=== PATIENT | male | born 1985 | race Two or more races ===

== ENCOUNTER 2024-09-02 09:32 | Inpatient (IN) | payer OTHER ==
[~2024-09-02] VITALS: Ht 182.9 cm; Wt 120.0 kg
[2024-09-02] MEDS ORDERED: METF-81 PO (10:43)
[2024-09-02] MEDS ORDERED: ATOR20TA PO (10:43)
[2024-09-02] MEDS ORDERED: SODIUM CHLORIDE 0.9% 0 ML ONE (11:05)
[2024-09-02] MEDS ORDERED: IOHEXOL 350 MG/ML 100 ML VIAL ONE (11:05)
[2024-09-02] MEDS ORDERED: 0.9% SODIUM CHLORIDE 10 ML SYRINGE IVP ONE (11:06)
[2024-09-02 11:13] LABS: BASOPHILS % (AUTO) 0.5 % (0.0-2.0); EOSINOPHILS % (AUTO) 3.2 % (1.0-6.0); HEMATOCRIT 41.9 % (41-53); HEMOGLOBIN 13.8 g/dL (13.5-17.5); LYMPHOCYTES # (AUTO) 3.3 K/uL (1.0-4.8); LYMPHOCYTES % (AUTO) 40.1 % (22.0-44.0); MEAN CORPUSCULAR HEMOGLOBIN 30.1 pg (26.0-34.0); MEAN CORPUSCULAR VOLUME 91 fL (80-100); MONOCYTES # (AUTO) 0.8 K/uL (0.1-1.0); MONOCYTES % (AUTO) 10.4 % (2.0-9.0); NEUTROPHILS # (AUTO) 3.7 K/uL (1.8-7.7); NEUTROPHILS % (AUTO) 45.8 % (40.0-70.0); PLATELET COUNT (AUTO) 240 K/uL (150-450); RED BLOOD CELL COUNT(AUTO) 4.59 MIL/uL (4.50-5.90); RED CELL DISTRIBUTION WIDTH 13.1 % (11.5-14.5); WHITE BLOOD COUNT (AUTO) 8.2 K/uL (4.5-11.0)
[2024-09-02 11:44] LABS: ANION GAP 13 mmol/L (8-16); CALCIUM, TOTAL 9.2 mg/dL (8.8-10.5); CARBON DIOXIDE 26 mmol/L (22-29); CHLORIDE 105 mmol/L (98-107); CREATININE 0.95 mg/dL (0.60-1.30); GLOMERULAR FILTR. RATE CALC > 60 mL/min (>60); GLUCOSE,RANDOM 80 mg/dL (70-110); POTASSIUM 3.7 mmol/L (3.5-5.1); SODIUM SERUM 144 mmol/L (136-145); UREA NITROGEN, BLOOD 12 mg/dL (7-18)
[2024-09-02 11:52] LABS: ALANINE AMINOTRANSFERASE 84 U/L (12-78); ALBUMIN 4.1 g/dL (3.4-5.0); ALKALINE PHOSPHATASE 84 U/L (46-116); ASPARTATE AMINOTRANSFERASE 50 U/L (15-37); BILIRUBIN,TOTAL 0.9 mg/dL (0.1-1.0); LIPASE 21 U/L (16-77); TOTAL PROTEIN, SERUM 7.4 g/dL (6.4-8.2)
[2024-09-02 15:21] LABS: APPEARANCE,URINE CLEAR (CLEAR); BILIRUBIN,URINE NEGATIVE (NEGATIVE); COLOR,URINE YELLOW (YELLOW); GLUCOSE, URINE (UA) NEGATIVE (NEGATIVE); KETONES,URINE 40-60 mg/dL (NEGATIVE); LEUKOCYTE ESTERASE ,URINE NEGATIVE (NEGATIVE); NITRATE,URINE NEGATIVE (NEGATIVE); OCCULT BLOOD,URINE NEGATIVE (NEGATIVE); PH,URINE 5.5 (5.0-8.0); PROTEIN,URINE TRACE mg/dL (NEGATIVE); SPECIFIC GRAVITIY, URINE 1.026 (1.003-1.030); UROBILINOGEN,URINE <=1.0 mg/dL (<=1.0)
[2024-09-02] MEDS ORDERED: MORPHINE SULFATE 2 MG/ML SYRINGE IVP PRN (16:15)
[2024-09-02] MEDS ORDERED: HYDROCODONE/ACETAMINOPHEN 5-325 MG TABLET PO PRN (16:15)
[2024-09-02] MEDS ORDERED: BISACODYL 10 MG RECTAL RECTAL SUPPOSITORY PR PRN (16:15)
[2024-09-02] MEDS ORDERED: ONDANSETRON HCL 4 MG/2 ML VIAL IVP PRN (16:15)
[2024-09-02] MEDS ORDERED: ZOLPIDEM TARTRATE 5 MG TABLET PO PRN (16:15)
[2024-09-02] MEDS ORDERED: ACETAMINOPHEN 325 MG TABLET PO PRN (16:15)
[2024-09-02] MEDS ORDERED: MAGNESIUM HYDROXIDE SUSPENSION 30 ML UDCUP PO PRN (16:15)
[2024-09-02 20:56] VITALS: BP 134/83; PULSE 64; RESP 18; TEMP 97.7; O2SAT 95
[2024-09-02] MEDS: DOCUSATE SODIUM 100 MG CAPSULE PO SCH (21:00)
[2024-09-02] MEDS: HEPARIN SODIUM,PORCINE 5,000 UNITS/ML VIAL SQ SCH (23:14)
[2024-09-03 00:09] VITALS: BP 111/66; PULSE 64; RESP 18; TEMP 98; O2SAT 96
[2024-09-03 03:50] VITALS: BP 93/60; PULSE 55; RESP 18; TEMP 97.9; O2SAT 97
[2024-09-03 06:47] LABS: BASOPHILS % (AUTO) 0.7 % (0.0-2.0); EOSINOPHILS % (AUTO) 3.9 % (1.0-6.0); HEMATOCRIT 41.3 % (41-53); HEMOGLOBIN 14.2 g/dL (13.5-17.5); LYMPHOCYTES # (AUTO) 2.7 K/uL (1.0-4.8); LYMPHOCYTES % (AUTO) 41.1 % (22.0-44.0); MEAN CORPUSCULAR HEMOGLOBIN 30.7 pg (26.0-34.0); MEAN CORPUSCULAR HGB CONC 34.2 G/dL (31.0-37.0); MEAN CORPUSCULAR VOLUME 90 fL (80-100); MONOCYTES # (AUTO) 0.6 K/uL (0.1-1.0); MONOCYTES % (AUTO) 9.6 % (2.0-9.0); NEUTROPHILS # (AUTO) 2.9 K/uL (1.8-7.7); NEUTROPHILS % (AUTO) 44.7 % (40.0-70.0); PLATELET COUNT (AUTO) 238 K/uL (150-450); RED BLOOD CELL COUNT(AUTO) 4.62 MIL/uL (4.50-5.90); RED CELL DISTRIBUTION WIDTH 13.2 % (11.5-14.5); WHITE BLOOD COUNT (AUTO) 6.5 K/uL (4.5-11.0)
[2024-09-03 06:55] LABS: ANION GAP 10 mmol/L (8-16); CARBON DIOXIDE 25 mmol/L (22-29); CHLORIDE 106 mmol/L (98-107); CREATININE 0.89 mg/dL (0.60-1.30); GLOMERULAR FILTR. RATE CALC > 60 mL/min (>60); GLUCOSE,RANDOM 76 mg/dL (70-110); POTASSIUM 3.3 mmol/L (3.5-5.1); SODIUM SERUM 141 mmol/L (136-145); UREA NITROGEN, BLOOD 10 mg/dL (7-18)
[2024-09-03 07:56] VITALS: BP 102/62; PULSE 58; RESP 19; TEMP 98.1; O2SAT 99
[2024-09-03] MEDS: ATORVASTATIN CALCIUM 20 MG TABLET PO SCH (08:40)
[2024-09-03] MEDS: MetFORMIN HCL 500 MG ER TABLET PO SCH (08:40)
[2024-09-03] MEDS: PANTOPRAZOLE SODIUM 40 MG DR TABLET PO SCH (08:40)
[2024-09-03] MEDS: SODIUM CHLORIDE 0.9% 1,000 ML IV ONE (13:04)
[2024-09-03 14:57] VITALS: BP 113/72; PULSE 68; RESP 19; TEMP 98.1; O2SAT 98
[2024-09-03 15:06] LABS: CREATINE KINASE, TOTAL ONLY 126 U/L (39-308)
[2024-09-03 20:00] VITALS: BP 111/69; PULSE 65; RESP 18; TEMP 98.1; O2SAT 95
[2024-09-04] VITALS: BP 103/61; PULSE 63; RESP 17; TEMP 97.9; O2SAT 99
[2024-09-04 04:00] VITALS: BP 108/70; PULSE 60; RESP 18; TEMP 98.1; O2SAT 97
[2024-09-04 04:06] LABS: HEPATITIS C AB (EIA) Non Reactive (Non Reactive)
[2024-09-04 06:55] LABS: BASOPHILS % (AUTO) 0.6 % (0.0-2.0); HEMATOCRIT 42.5 % (41-53); HEMOGLOBIN 14.4 g/dL (13.5-17.5); LYMPHOCYTES # (AUTO) 3.6 K/uL (1.0-4.8); LYMPHOCYTES % (AUTO) 51.4 % (22.0-44.0); MEAN CORPUSCULAR HEMOGLOBIN 30.7 pg (26.0-34.0); MEAN CORPUSCULAR HGB CONC 33.9 G/dL (31.0-37.0); MEAN CORPUSCULAR VOLUME 91 fL (80-100); MONOCYTES # (AUTO) 0.6 K/uL (0.1-1.0); MONOCYTES % (AUTO) 9.2 % (2.0-9.0); NEUTROPHILS # (AUTO) 2.4 K/uL (1.8-7.7); NEUTROPHILS % (AUTO) 34.8 % (40.0-70.0); PLATELET COUNT (AUTO) 229 K/uL (150-450); RED BLOOD CELL COUNT(AUTO) 4.69 MIL/uL (4.50-5.90); RED CELL DISTRIBUTION WIDTH 13.3 % (11.5-14.5); WHITE BLOOD COUNT (AUTO) 6.9 K/uL (4.5-11.0)
[2024-09-04 07:16] LABS: ANION GAP 7 mmol/L (8-16); CALCIUM, TOTAL 9.4 mg/dL (8.8-10.5); CARBON DIOXIDE 25 mmol/L (22-29); CHLORIDE 107 mmol/L (98-107); CREATININE 0.93 mg/dL (0.60-1.30); GLOMERULAR FILTR. RATE CALC > 60 mL/min (>60); GLUCOSE,RANDOM 80 mg/dL (70-110); POTASSIUM 3.8 mmol/L (3.5-5.1); SODIUM SERUM 139 mmol/L (136-145); UREA NITROGEN, BLOOD 11 mg/dL (7-18)
[2024-09-04 08:04] VITALS: BP 116/76; PULSE 58; RESP 19; TEMP 97.8; O2SAT 97
[2024-09-04 15:35] VITALS: BP 111/67; PULSE 61; RESP 19; TEMP 98.1; O2SAT 99
[2024-09-04 20:24] VITALS: BP 112/72; PULSE 69; RESP 18; TEMP 98; O2SAT 95
[2024-09-05 00:07] VITALS: BP 98/63; PULSE 67; RESP 18; TEMP 97.5; O2SAT 95
[2024-09-05 06:15] VITALS: BP 103/62; PULSE 60; RESP 16; TEMP 97.9; O2SAT 95
[2024-09-05 07:15] LABS: BASOPHILS % (AUTO) 0.8 % (0.0-2.0); EOSINOPHILS % (AUTO) 3.7 % (1.0-6.0); HEMATOCRIT 41.8 % (41-53); HEMOGLOBIN 14.1 g/dL (13.5-17.5); LYMPHOCYTES # (AUTO) 2.9 K/uL (1.0-4.8); MEAN CORPUSCULAR HEMOGLOBIN 30.4 pg (26.0-34.0); MEAN CORPUSCULAR HGB CONC 33.8 G/dL (31.0-37.0); MEAN CORPUSCULAR VOLUME 90 fL (80-100); MONOCYTES # (AUTO) 0.5 K/uL (0.1-1.0); MONOCYTES % (AUTO) 8.1 % (2.0-9.0); NEUTROPHILS # (AUTO) 2.8 K/uL (1.8-7.7); NEUTROPHILS % (AUTO) 43.4 % (40.0-70.0); PLATELET COUNT (AUTO) 226 K/uL (150-450); RED BLOOD CELL COUNT(AUTO) 4.65 MIL/uL (4.50-5.90); RED CELL DISTRIBUTION WIDTH 13.4 % (11.5-14.5); WHITE BLOOD COUNT (AUTO) 6.5 K/uL (4.5-11.0)
[2024-09-05 07:27] LABS: ANION GAP 9 mmol/L (8-16); CALCIUM, TOTAL 8.8 mg/dL (8.8-10.5); CARBON DIOXIDE 26 mmol/L (22-29); CHLORIDE 106 mmol/L (98-107); CREATININE 0.82 mg/dL (0.60-1.30); GLOMERULAR FILTR. RATE CALC > 60 mL/min (>60); GLUCOSE,RANDOM 76 mg/dL (70-110); POTASSIUM 3.4 mmol/L (3.5-5.1); SODIUM SERUM 141 mmol/L (136-145); UREA NITROGEN, BLOOD 11 mg/dL (7-18)
[2024-09-05 08:07] VITALS: BP 102/66; PULSE 60; RESP 19; TEMP 97.6; O2SAT 94
[2024-09-05] MEDS: POTASSIUM CHLORIDE 20 MEQ ER TABLET PO ONE (11:15)
[2024-09-05 11:49] VITALS: BP 111/65; PULSE 65; RESP 20; TEMP 97.9; O2SAT 92
[2024-09-05 16:17] VITALS: BP 107/61; PULSE 68; RESP 17; TEMP 98; O2SAT 97
== END 2024-09-05 16:20 | DRG 74 ==
LOC: EMS 09:32 → EDH 16:15 → 5S 20:46
PROVIDERS: ADMIT Internal Medicine; ATTEND Internal Medicine
DX: G90.89 Other disorders of autonomic nervous system (principal); K57.30 Diverticulosis of large intestine without perforation or abscess without bleeding; E11.9 Type 2 diabetes mellitus without complications; E78.5 Hyperlipidemia, unspecified; F17.200 Nicotine dependence, unspecified, uncomplicated; R30.9 Painful micturition, unspecified; N50.812 Left testicular pain; Z79.84 Long term (current) use of oral hypoglycemic drugs; Z79.899 Other long term (current) drug therapy; Z91.018 Allergy to other foods
CPT/HCPCS: 70450; 74177; 76870; 80048; 80076; 81003; 82550; 83690; 84153; 85025; 86803; 87340; 93005; 99285; J1644; J7030; J7050

== ENCOUNTER 2024-10-29 08:50 | Inpatient (IN) | payer OTHER ==
[~2024-10-29] VITALS: Ht 180.3 cm; Wt 113.5 kg
[~2024-10-29 08:50] MED LIST: ATOR20TA PO; METF-81 PO
[2024-10-29] MEDS ORDERED: CETI-193 PO (11:53)
[2024-10-29] MEDS ORDERED: ACET-784 PO (11:53)
[2024-10-29] MEDS ORDERED: IBUP-2784 PO (11:53)
[2024-10-29 12:49] LABS: ANION GAP 8 mmol/L (8-16); CARBON DIOXIDE 29 mmol/L (22-29); CHLORIDE 103 mmol/L (98-107); CREATININE 0.88 mg/dL (0.60-1.30); GLOMERULAR FILTR. RATE CALC > 60 mL/min (>60); GLUCOSE,RANDOM 90 mg/dL (70-110); POTASSIUM 3.7 mmol/L (3.5-5.1); SODIUM SERUM 140 mmol/L (136-145); UREA NITROGEN, BLOOD 9 mg/dL (7-18)
[2024-10-29 12:54] LABS: BASOPHILS % (AUTO) 0.7 % (0.0-2.0); EOSINOPHILS % (AUTO) 1.9 % (1.0-6.0); HEMATOCRIT 43.1 % (41-53); HEMOGLOBIN 14.1 g/dL (13.5-17.5); LYMPHOCYTES # (AUTO) 1.6 K/uL (1.0-4.8); LYMPHOCYTES % (AUTO) 35.1 % (22.0-44.0); MEAN CORPUSCULAR HEMOGLOBIN 30.3 pg (26.0-34.0); MEAN CORPUSCULAR HGB CONC 32.8 G/dL (31.0-37.0); MEAN CORPUSCULAR VOLUME 93 fL (80-100); MONOCYTES # (AUTO) 0.6 K/uL (0.1-1.0); MONOCYTES % (AUTO) 14.2 % (2.0-9.0); NEUTROPHILS # (AUTO) 2.2 K/uL (1.8-7.7); NEUTROPHILS % (AUTO) 48.1 % (40.0-70.0); PLATELET COUNT (AUTO) 180 K/uL (150-450); RED BLOOD CELL COUNT(AUTO) 4.66 MIL/uL (4.50-5.90); RED CELL DISTRIBUTION WIDTH 15.4 % (11.5-14.5); WHITE BLOOD COUNT (AUTO) 4.5 K/uL (4.5-11.0)
[2024-10-29 13:02] LABS: ALANINE AMINOTRANSFERASE 2741 U/L (12-78); ALBUMIN 3.4 g/dL (3.4-5.0); ALKALINE PHOSPHATASE 223 U/L (46-116); BILIRUBIN,TOTAL 10.1 mg/dL (0.1-1.0); TOTAL PROTEIN, SERUM 7.7 g/dL (6.4-8.2)
[2024-10-29 13:03] LABS: ASPARTATE AMINOTRANSFERASE 1594 U/L (15-37)
[2024-10-29 17:29] VITALS: BP 112/65; PULSE 58; RESP 18; TEMP 97.8; O2SAT 99
[2024-10-29] MEDS ORDERED: CETIRIZINE HCL 10 MG TABLET PO PRN (18:00)
[2024-10-29] MEDS ORDERED: IBUPROFEN 200 MG TABLET PO PRN (18:00)
[2024-10-29 20:00] VITALS: BP 114/62; PULSE 68; RESP 18; TEMP 98.4; O2SAT 97
[2024-10-29] MEDS ORDERED: BISACODYL 10 MG RECTAL RECTAL SUPPOSITORY PR PRN (21:00)
[2024-10-29] MEDS ORDERED: ACETAMINOPHEN 325 MG TABLET PO PRN (21:00)
[2024-10-29] MEDS ORDERED: MAGNESIUM HYDROXIDE SUSPENSION 30 ML UDCUP PO PRN (21:00)
[2024-10-29] MEDS ORDERED: IPRATROPIUM BROMIDE 0.5 MG/2.5 ML NEB SOLUTION NEB PRN (21:00)
[2024-10-29] MEDS ORDERED: ZOLPIDEM TARTRATE 5 MG TABLET PO PRN (21:00)
[2024-10-29] MEDS ORDERED: ALBUTEROL SULFATE 2.5 MG/0.5 ML NEB SOLUTION NEB PRN (21:00)
[2024-10-29] MEDS ORDERED: ONDANSETRON HCL 4 MG/2 ML VIAL IVP PRN (21:00)
[2024-10-29 21:35] LABS: BASOPHILS % (AUTO) 0.6 % (0.0-2.0); EOSINOPHILS % (AUTO) 2.4 % (1.0-6.0); HEMATOCRIT 40.7 % (41-53); HEMOGLOBIN 13.3 g/dL (13.5-17.5); LYMPHOCYTES # (AUTO) 1.9 K/uL (1.0-4.8); LYMPHOCYTES % (AUTO) 37.5 % (22.0-44.0); MEAN CORPUSCULAR HGB CONC 32.8 G/dL (31.0-37.0); MEAN CORPUSCULAR VOLUME 92 fL (80-100); MONOCYTES # (AUTO) 0.7 K/uL (0.1-1.0); MONOCYTES % (AUTO) 14.5 % (2.0-9.0); NEUTROPHILS # (AUTO) 2.3 K/uL (1.8-7.7); PLATELET COUNT (AUTO) 148 K/uL (150-450); RED BLOOD CELL COUNT(AUTO) 4.44 MIL/uL (4.50-5.90); RED CELL DISTRIBUTION WIDTH 15.1 % (11.5-14.5); WHITE BLOOD COUNT (AUTO) 5.2 K/uL (4.5-11.0)
[2024-10-29 21:41] LABS: ANION GAP 3 mmol/L (8-16); CALCIUM, TOTAL 8.9 mg/dL (8.8-10.5); CARBON DIOXIDE 33 mmol/L (22-29); CHLORIDE 100 mmol/L (98-107); CREATININE 0.94 mg/dL (0.60-1.30); GLOMERULAR FILTR. RATE CALC > 60 mL/min (>60); GLUCOSE,RANDOM 106 mg/dL (70-110); POTASSIUM 3.9 mmol/L (3.5-5.1); SODIUM SERUM 136 mmol/L (136-145); UREA NITROGEN, BLOOD 8 mg/dL (7-18)
[2024-10-29 21:52] LABS: ALANINE AMINOTRANSFERASE 2413 U/L (12-78); ALBUMIN 2.9 g/dL (3.4-5.0); ALKALINE PHOSPHATASE 200 U/L (46-116); BILIRUBIN,TOTAL 9.9 mg/dL (0.1-1.0); TOTAL PROTEIN, SERUM 6.7 g/dL (6.4-8.2)
[2024-10-29 21:53] LABS: ASPARTATE AMINOTRANSFERASE 1417 U/L (15-37)
[2024-10-29] MEDS: HEPARIN SODIUM,PORCINE 5,000 UNITS/ML VIAL SQ SCH (23:51)
[2024-10-30 04:00] VITALS: BP 94/68; PULSE 64; RESP 20; TEMP 97.9; O2SAT 97
[2024-10-30] MEDS: SODIUM CHLORIDE 0.9% 1,000 ML IV SCH (07:30)
[2024-10-30] MEDS: MetFORMIN HCL 500 MG ER TABLET PO SCH (08:00)
[2024-10-30 08:33] VITALS: BP 107/73; PULSE 63; RESP 18; TEMP 97.9; O2SAT 98
[2024-10-30] MEDS: PANTOPRAZOLE SODIUM 40 MG DR TABLET PO SCH (08:57)
[2024-10-31 02:06] LABS: HEPATITIS A ANTIBODY IGM Negative (Negative); HEPATITIS B CORE IGM Negative (Negative); HEPATITIS C AB (EIA) Non Reactive (Non Reactive)
== END 2024-10-30 09:45 | disposition left against medical advice (07) | DRG 443 ==
LOC: EMS 08:50 → EDH 16:31 → 6S 17:20
PROVIDERS: ADMIT Hospitalist; ATTEND Hospitalist
DX: K72.00 Acute and subacute hepatic failure without coma (principal); E78.00 Pure hypercholesterolemia, unspecified; E11.9 Type 2 diabetes mellitus without complications; Z53.21 Procedure and treatment not carried out due to patient leaving prior to being seen by health care provider; D69.6 Thrombocytopenia, unspecified; R74.01 Elevation of levels of liver transaminase levels; Z79.84 Long term (current) use of oral hypoglycemic drugs; Z79.899 Other long term (current) drug therapy
CPT/HCPCS: 71045; 74176; 76700; 80048; 80053; 80074; 80076; 85025; 93005; 99285; J1644; J7030; 36415-L1; 36415-TC

== ENCOUNTER 2024-10-31 15:27 | Inpatient (IN) | payer OTHER ==
[~2024-10-31] VITALS: Ht 185.4 cm; Wt 120.0 kg
[~2024-10-31 15:27] MED LIST changes: +ACET-784 PO; +CETI-193 PO; +IBUP-2784 PO
[2024-10-31 17:17] LABS: BASOPHILS % (AUTO) 0.4 % (0.0-2.0); EOSINOPHILS % (AUTO) 0.2 % (1.0-6.0); HEMATOCRIT 42.2 % (41-53); HEMOGLOBIN 13.9 g/dL (13.5-17.5); LYMPHOCYTES # (AUTO) 1.5 K/uL (1.0-4.8); LYMPHOCYTES % (AUTO) 26.6 % (22.0-44.0); MEAN CORPUSCULAR HEMOGLOBIN 30.1 pg (26.0-34.0); MEAN CORPUSCULAR HGB CONC 33.1 G/dL (31.0-37.0); MEAN CORPUSCULAR VOLUME 91 fL (80-100); MONOCYTES # (AUTO) 0.6 K/uL (0.1-1.0); MONOCYTES % (AUTO) 10.9 % (2.0-9.0); NEUTROPHILS # (AUTO) 3.5 K/uL (1.8-7.7); NEUTROPHILS % (AUTO) 61.9 % (40.0-70.0); PLATELET COUNT (AUTO) 195 K/uL (150-450); RED BLOOD CELL COUNT(AUTO) 4.63 MIL/uL (4.50-5.90); WHITE BLOOD COUNT (AUTO) 5.7 K/uL (4.5-11.0)
[2024-10-31 17:25] LABS: ANION GAP 7 mmol/L (8-16); CALCIUM, TOTAL 9.4 mg/dL (8.8-10.5); CARBON DIOXIDE 31 mmol/L (22-29); CHLORIDE 100 mmol/L (98-107); GLOMERULAR FILTR. RATE CALC > 60 mL/min (>60); GLUCOSE,RANDOM 91 mg/dL (70-110); POTASSIUM 3.8 mmol/L (3.5-5.1); SODIUM SERUM 138 mmol/L (136-145); UREA NITROGEN, BLOOD 10 mg/dL (7-18)
[2024-10-31 17:31] LABS: PROTHROMBIN TIME 14.5 SEC (9.4-11.6)
[2024-10-31 17:36] LABS: ALANINE AMINOTRANSFERASE 2675 U/L (12-78); ALBUMIN 3.4 g/dL (3.4-5.0); ALKALINE PHOSPHATASE 218 U/L (46-116); BILIRUBIN,TOTAL 15.5 mg/dL (0.1-1.0); LIPASE 28 U/L (16-77); TOTAL PROTEIN, SERUM 7.8 g/dL (6.4-8.2)
[2024-10-31 17:56] LABS: ASPARTATE AMINOTRANSFERASE 1544 U/L (15-37)
[2024-10-31 19:42] LABS: APPEARANCE,URINE CLEAR (CLEAR); COLOR,URINE DARK YELLOW (YELLOW); GLUCOSE, URINE (UA) NEGATIVE (NEGATIVE); KETONES,URINE NEGATIVE (NEGATIVE); LEUKOCYTE ESTERASE ,URINE NEGATIVE (NEGATIVE); NITRATE,URINE NEGATIVE (NEGATIVE); OCCULT BLOOD,URINE NEGATIVE (NEGATIVE); PROTEIN,URINE TRACE mg/dL (NEGATIVE); SPECIFIC GRAVITIY, URINE 1.023 (1.003-1.030)
[2024-10-31 19:46] LABS: BILIRUBIN,URINE MODERATE (NEGATIVE)
[2024-10-31 19:53] LABS: ALCOHOL, URINE DRUG SCREEN NEGATIVE (NEGATIVE); AMPHET/METH SCREEN,URINE NEGATIVE (NEGATIVE); BARBITURATE SCREEN, URINE NEGATIVE (NEGATIVE); BENZODIAZEPINES SCREEN,URINE NEGATIVE (NEGATIVE); CANNABINOID SCREEN,URINE NEGATIVE (NEGATIVE); COCAINE SCREEN,URINE NEGATIVE (NEGATIVE); METHADONE SCREEN, URINE NEGATIVE (NEGATIVE); OPIATE SCREEN,URINE NEGATIVE (NEGATIVE); PHENCYCLIDINE SCREEN,URINE NEGATIVE (NEGATIVE)
[2024-10-31 20:32] LABS: BACTERIA,URINE None Seen /HPF (None Seen); RBC,URINE None Seen /HPF (0-2); WBC,URINE None Seen /HPF (0-5)
[2024-10-31] MEDS ORDERED: ONDANSETRON HCL 4 MG/2 ML VIAL IVP PRN (22:15)
[2024-10-31] MEDS ORDERED: IPRATROPIUM BROMIDE 0.5 MG/2.5 ML NEB SOLUTION NEB PRN (22:15)
[2024-10-31] MEDS ORDERED: ALBUTEROL SULFATE 2.5 MG/0.5 ML NEB SOLUTION NEB PRN (22:15)
[2024-10-31] MEDS ORDERED: ZOLPIDEM TARTRATE 5 MG TABLET PO PRN (22:15)
[2024-10-31] MEDS ORDERED: BISACODYL 10 MG RECTAL RECTAL SUPPOSITORY PR PRN (22:15)
[2024-11-01] MEDS: HEPARIN SODIUM,PORCINE 5,000 UNITS/ML VIAL SQ SCH
[2024-11-01 00:43] VITALS: BP 109/59; PULSE 69; RESP 18; TEMP 98; O2SAT 97
[2024-11-01 05:32] VITALS: BP 103/62; PULSE 72; RESP 18; TEMP 98; O2SAT 98
[2024-11-01 08:00] VITALS: BP 110/64; PULSE 67; RESP 18; TEMP 98.4; O2SAT 98
[2024-11-01] MEDS: PANTOPRAZOLE SODIUM 40 MG DR TABLET PO SCH (09:00)
[2024-11-01 16:22] LABS: BASOPHILS % (AUTO) 0.6 % (0.0-2.0); EOSINOPHILS % (AUTO) 1.9 % (1.0-6.0); HEMATOCRIT 40.1 % (41-53); HEMOGLOBIN 13.5 g/dL (13.5-17.5); LYMPHOCYTES # (AUTO) 1.7 K/uL (1.0-4.8); LYMPHOCYTES % (AUTO) 31.7 % (22.0-44.0); MEAN CORPUSCULAR HEMOGLOBIN 30.3 pg (26.0-34.0); MEAN CORPUSCULAR HGB CONC 33.7 G/dL (31.0-37.0); MEAN CORPUSCULAR VOLUME 90 fL (80-100); MONOCYTES # (AUTO) 0.7 K/uL (0.1-1.0); NEUTROPHILS # (AUTO) 2.9 K/uL (1.8-7.7); NEUTROPHILS % (AUTO) 53.8 % (40.0-70.0); PLATELET COUNT (AUTO) 180 K/uL (150-450); RED BLOOD CELL COUNT(AUTO) 4.46 MIL/uL (4.50-5.90); RED CELL DISTRIBUTION WIDTH 16.1 % (11.5-14.5); WHITE BLOOD COUNT (AUTO) 5.4 K/uL (4.5-11.0)
[2024-11-01 16:25] LABS: ANION GAP 9 mmol/L (8-16); CARBON DIOXIDE 27 mmol/L (22-29); CHLORIDE 102 mmol/L (98-107); CREATININE 0.89 mg/dL (0.60-1.30); GLOMERULAR FILTR. RATE CALC > 60 mL/min (>60); GLUCOSE,RANDOM 98 mg/dL (70-110); POTASSIUM 4.5 mmol/L (3.5-5.1); SODIUM SERUM 138 mmol/L (136-145); UREA NITROGEN, BLOOD 10 mg/dL (7-18)
[2024-11-01 16:35] LABS: ALANINE AMINOTRANSFERASE 2469 U/L (12-78); ALKALINE PHOSPHATASE 199 U/L (46-116); BILIRUBIN,TOTAL 16.4 mg/dL (0.1-1.0)
[2024-11-01 16:47] LABS: ASPARTATE AMINOTRANSFERASE 1545 U/L (15-37)
[2024-11-01 18:44] LABS: PROTHROMBIN TIME 14.6 SEC (9.4-11.6)
[2024-11-01 19:51] VITALS: BP 108/64; PULSE 79; RESP 20; TEMP 98.2; O2SAT 97
[2024-11-02 04:55] VITALS: BP 100/63; PULSE 69; RESP 20; TEMP 98.2; O2SAT 95
[2024-11-02 07:20] VITALS: BP 109/67; PULSE 67; RESP 18; TEMP 98.2; O2SAT 100
[2024-11-02 07:51] LABS: PROTHROMBIN TIME 13.9 SEC (9.4-11.6)
[2024-11-02 09:41] LABS: ALANINE AMINOTRANSFERASE 2257 U/L (12-78); ALBUMIN 2.9 g/dL (3.4-5.0); ALKALINE PHOSPHATASE 200 U/L (46-116); ANION GAP 5 mmol/L (8-16); BILIRUBIN,TOTAL 16.6 mg/dL (0.1-1.0); CALCIUM, TOTAL 8.8 mg/dL (8.8-10.5); CARBON DIOXIDE 29 mmol/L (22-29); CHLORIDE 99 mmol/L (98-107); CREATININE 0.84 mg/dL (0.60-1.30); GLOMERULAR FILTR. RATE CALC > 60 mL/min (>60); GLUCOSE,RANDOM 92 mg/dL (70-110); POTASSIUM 3.9 mmol/L (3.5-5.1); SODIUM SERUM 133 mmol/L (136-145); UREA NITROGEN, BLOOD 11 mg/dL (7-18)
[2024-11-02 09:45] LABS: ASPARTATE AMINOTRANSFERASE 1307 U/L (15-37)
[2024-11-02 15:59] LABS: PROTHROMBIN TIME 13.8 SEC (9.4-11.6)
[2024-11-02 19:55] VITALS: BP 107/59; PULSE 70; RESP 18; TEMP 98.6; O2SAT 94
[2024-11-03 04:50] VITALS: BP 108/67; PULSE 70; RESP 18; TEMP 98.5; O2SAT 99
[2024-11-03 07:56] VITALS: BP 105/45; PULSE 68; RESP 18; TEMP 97.8; O2SAT 96
[2024-11-03 09:33] LABS: HEMOGLOBIN A1C 4.9 % (3.8-5.6)
[2024-11-03 09:38] LABS: PROTHROMBIN TIME 13.5 SEC (9.4-11.6)
[2024-11-03 09:47] LABS: ALANINE AMINOTRANSFERASE 2287 U/L (12-78); ALBUMIN 2.7 g/dL (3.4-5.0); ALKALINE PHOSPHATASE 187 U/L (46-116); ANION GAP 8 mmol/L (8-16); ASPARTATE AMINOTRANSFERASE 1333 U/L (15-37); BILIRUBIN,TOTAL 17.6 mg/dL (0.1-1.0); CALCIUM, TOTAL 8.4 mg/dL (8.8-10.5); CARBON DIOXIDE 27 mmol/L (22-29); CHLORIDE 102 mmol/L (98-107); CREATININE 0.97 mg/dL (0.60-1.30); GLOMERULAR FILTR. RATE CALC > 60 mL/min (>60); GLUCOSE,RANDOM 144 mg/dL (70-110); SODIUM SERUM 136 mmol/L (136-145); TOTAL PROTEIN, SERUM 7.1 g/dL (6.4-8.2); UREA NITROGEN, BLOOD 12 mg/dL (7-18)
[2024-11-03] MEDS ORDERED: GUAIF600 PO (11:25)
[2024-11-03] MEDS ORDERED: TAMS0.4C94 PO (11:25)
[2024-11-03 19:35] VITALS: BP 111/71; PULSE 77; RESP 20; TEMP 98.1; O2SAT 95
[2024-11-04 05:15] VITALS: BP 100/59; PULSE 67; RESP 18; TEMP 98.2; O2SAT 96
[2024-11-04 07:40] VITALS: BP 100/60; PULSE 62; RESP 18; TEMP 98.1; O2SAT 96
[2024-11-04 12:44] LABS: ALANINE AMINOTRANSFERASE 2221 U/L (12-78); ALBUMIN 2.7 g/dL (3.4-5.0); ALKALINE PHOSPHATASE 179 U/L (46-116); ANION GAP 4 mmol/L (8-16); BILIRUBIN,TOTAL 18.3 mg/dL (0.1-1.0); CALCIUM, TOTAL 8.9 mg/dL (8.8-10.5); CARBON DIOXIDE 29 mmol/L (22-29); CHLORIDE 102 mmol/L (98-107); CREATININE 0.92 mg/dL (0.60-1.30); GLOMERULAR FILTR. RATE CALC > 60 mL/min (>60); GLUCOSE,RANDOM 103 mg/dL (70-110); POTASSIUM 4.6 mmol/L (3.5-5.1); SODIUM SERUM 135 mmol/L (136-145); TOTAL PROTEIN, SERUM 7.1 g/dL (6.4-8.2); UREA NITROGEN, BLOOD 12 mg/dL (7-18)
[2024-11-04 12:46] LABS: ASPARTATE AMINOTRANSFERASE 1328 U/L (15-37)
[2024-11-04] MEDS: MAGNESIUM HYDROXIDE SUSPENSION 30 ML UDCUP PO PRN (16:06)
[2024-11-04 20:00] VITALS: BP 124/65; PULSE 78; RESP 18; TEMP 98.4; O2SAT 100
[2024-11-05 04:23] VITALS: BP 104/61; PULSE 67; RESP 18; TEMP 97.9; O2SAT 100
[2024-11-05 10:53] LABS: PROTHROMBIN TIME 12.9 SEC (9.4-11.6)
[2024-11-05 10:54] LABS: ALANINE AMINOTRANSFERASE 2080 U/L (12-78); ALBUMIN 2.6 g/dL (3.4-5.0); ALKALINE PHOSPHATASE 186 U/L (46-116); ANION GAP 7 mmol/L (8-16); BILIRUBIN,TOTAL 17.8 mg/dL (0.1-1.0); CALCIUM, TOTAL 8.6 mg/dL (8.8-10.5); CARBON DIOXIDE 26 mmol/L (22-29); CHLORIDE 103 mmol/L (98-107); CREATININE 0.89 mg/dL (0.60-1.30); GLOMERULAR FILTR. RATE CALC > 60 mL/min (>60); GLUCOSE,RANDOM 125 mg/dL (70-110); POTASSIUM 3.7 mmol/L (3.5-5.1); SODIUM SERUM 136 mmol/L (136-145); TOTAL PROTEIN, SERUM 7.1 g/dL (6.4-8.2); UREA NITROGEN, BLOOD 10 mg/dL (7-18)
[2024-11-05 10:55] LABS: ASPARTATE AMINOTRANSFERASE 1186 U/L (15-37)
[2024-11-05 19:38] VITALS: BP 102/59; PULSE 75; RESP 18; TEMP 98.2; O2SAT 98
[2024-11-06] VITALS (9 sets, daily range): BP systolic 99–114; BP diastolic 57–65; PULSE 63–70; RESP 17–18; TEMP 98.3–98.8; O2SAT 97–100
[2024-11-06] MEDS ORDERED: LIDOCAINE/PF 1% 30 ML VIAL ONE (09:46)
[2024-11-06 12:00] LABS: PROTHROMBIN TIME 12.8 SEC (9.4-11.6)
[2024-11-06 12:07] LABS: ALANINE AMINOTRANSFERASE 2056 U/L (12-78); ALBUMIN 2.7 g/dL (3.4-5.0); ALKALINE PHOSPHATASE 180 U/L (46-116); ANION GAP 5 mmol/L (8-16); ASPARTATE AMINOTRANSFERASE 1296 U/L (15-37); BILIRUBIN,TOTAL 19.8 mg/dL (0.1-1.0); CALCIUM, TOTAL 9.2 mg/dL (8.8-10.5); CARBON DIOXIDE 29 mmol/L (22-29); CHLORIDE 101 mmol/L (98-107); CREATININE 0.96 mg/dL (0.60-1.30); GLOMERULAR FILTR. RATE CALC > 60 mL/min (>60); GLUCOSE,RANDOM 101 mg/dL (70-110); SODIUM SERUM 135 mmol/L (136-145); TOTAL PROTEIN, SERUM 7.3 g/dL (6.4-8.2); UREA NITROGEN, BLOOD 10 mg/dL (7-18)
[2024-11-07 05:02] VITALS: BP 105/60; PULSE 67; RESP 16; TEMP 98.4; O2SAT 95
[2024-11-07 08:13] VITALS: BP 109/63; PULSE 69; RESP 19; TEMP 98.1; O2SAT 95
[2024-11-07 10:05] LABS: ALANINE AMINOTRANSFERASE 1788 U/L (12-78); ALBUMIN 2.6 g/dL (3.4-5.0); ALKALINE PHOSPHATASE 174 U/L (46-116); ANION GAP 5 mmol/L (8-16); BILIRUBIN,TOTAL 18.6 mg/dL (0.1-1.0); CALCIUM, TOTAL 8.5 mg/dL (8.8-10.5); CARBON DIOXIDE 26 mmol/L (22-29); CHLORIDE 102 mmol/L (98-107); CREATININE 0.98 mg/dL (0.60-1.30); GLOMERULAR FILTR. RATE CALC > 60 mL/min (>60); GLUCOSE,RANDOM 165 mg/dL (70-110); SODIUM SERUM 133 mmol/L (136-145); TOTAL PROTEIN, SERUM 7.2 g/dL (6.4-8.2); UREA NITROGEN, BLOOD 10 mg/dL (7-18)
[2024-11-07 10:07] LABS: PROTHROMBIN TIME 12.8 SEC (9.4-11.6)
[2024-11-07 10:11] LABS: ASPARTATE AMINOTRANSFERASE 1079 U/L (15-37)
[2024-11-07 19:18] VITALS: BP 113/65; PULSE 76; RESP 18; TEMP 98.3; O2SAT 97
[2024-11-07 19:49] VITALS: BP 106/61; PULSE 74; RESP 20; TEMP 99.3; O2SAT 97
[2024-11-07 21:06] LABS: URINE COPPER 30 ug/L (Not Estab.); URINE COPPER/CREAT RATIO 50 ug/g creat (0-49)
[2024-11-08 05:15] VITALS: BP 107/67; PULSE 73; RESP 18; TEMP 98.7; O2SAT 98
[2024-11-08 08:11] VITALS: BP 110/72; PULSE 71; RESP 18; TEMP 98.3; O2SAT 100
[2024-11-08 20:35] VITALS: BP 102/57; PULSE 73; RESP 18; TEMP 98.6; O2SAT 96
[2024-11-08 22:22] LABS: ALANINE AMINOTRANSFERASE 1512 U/L (12-78); ALBUMIN 2.5 g/dL (3.4-5.0); ALKALINE PHOSPHATASE 159 U/L (46-116); ASPARTATE AMINOTRANSFERASE 900 U/L (15-37); BILIRUBIN,TOTAL 15.6 mg/dL (0.1-1.0); CALCIUM, TOTAL 8.5 mg/dL (8.8-10.5); CHLORIDE 103 mmol/L (98-107); CREATININE 0.87 mg/dL (0.60-1.30); GLOMERULAR FILTR. RATE CALC > 60 mL/min (>60); GLUCOSE,RANDOM 132 mg/dL (70-110); SODIUM SERUM 138 mmol/L (136-145); TOTAL PROTEIN, SERUM 6.8 g/dL (6.4-8.2); UREA NITROGEN, BLOOD 11 mg/dL (7-18)
[2024-11-08 22:40] LABS: NEUTROPHILS # (AUTO) 1.7 K/uL (1.8-7.7); RED BLOOD CELL COUNT(AUTO) 4.09 MIL/uL (4.50-5.90)
[2024-11-08 22:43] LABS: ANION GAP 7 mmol/L (8-16); BASOPHILS % (AUTO) 1.1 % (0.0-2.0); CARBON DIOXIDE 28 mmol/L (22-29); EOSINOPHILS % (AUTO) 1.4 % (1.0-6.0); HEMATOCRIT 36.4 % (41-53); HEMOGLOBIN 12.4 g/dL (13.5-17.5); LYMPHOCYTES # (AUTO) 3.7 K/uL (1.0-4.8); LYMPHOCYTES % (AUTO) 61.7 % (22.0-44.0); MEAN CORPUSCULAR HEMOGLOBIN 30.2 pg (26.0-34.0); MEAN CORPUSCULAR VOLUME 89 fL (80-100); MONOCYTES # (AUTO) 0.5 K/uL (0.1-1.0); MONOCYTES % (AUTO) 7.6 % (2.0-9.0); NEUTROPHILS % (AUTO) 28.2 % (40.0-70.0); PLATELET COUNT (AUTO) 202 K/uL (150-450); RED CELL DISTRIBUTION WIDTH 18.4 % (11.5-14.5); WHITE BLOOD COUNT (AUTO) 5.9 K/uL (4.5-11.0)
[2024-11-09 03:26] LABS: GLUCOMETER DEV NAME(LOC) 6S.2; GLUCOSE,POINT OF CARE 127 MG/DL (70-110)
[2024-11-09 04:38] VITALS: BP 96/58; PULSE 62; RESP 18; TEMP 98.3; O2SAT 95
[2024-11-09 07:20] LABS: GLUCOMETER DEV NAME(LOC) 6S.2; GLUCOSE,POINT OF CARE 94 MG/DL (70-110)
[2024-11-09 08:46] VITALS: BP 104/55; PULSE 72; RESP 19; TEMP 98; O2SAT 98
[2024-11-09 09:07] LABS: HEP. E IGM COMMENT Notes; HEP. E IGM DISCLAIMER Notes; HEP. E IGM INTERPRETATION Notes; HEP. E IGM REFERENCES Notes; HEPATITIS E IGM QUANTITATIVE 0.008
[2024-11-10 06:11] LABS: GLUCOMETER DEV NAME(LOC) 6S.2; GLUCOSE,POINT OF CARE 77 MG/DL (70-110)
[2024-11-10 17:05] LABS: GLUCOMETER DEV NAME(LOC) 6N.2B; GLUCOSE,POINT OF CARE 104 MG/DL (70-110)
== END 2024-11-09 20:00 | DRG 442 ==
LOC: EMS 15:27 → EDH 22:09 → 6S 22:52
PROVIDERS: ADMIT Hospitalist; ATTEND Hospitalist
PROC: 0FB13ZX Excision of Right Lobe Liver, Percutaneous Approach, Diagnostic (ICD-10-PCS; principal; 2024-11-06)
DX: K72.00 Acute and subacute hepatic failure without coma (principal); B17.9 Acute viral hepatitis, unspecified; R18.8 Other ascites; R16.1 Splenomegaly, not elsewhere classified; R20.0 Anesthesia of skin; K59.00 Constipation, unspecified; H92.02 Otalgia, left ear; E11.9 Type 2 diabetes mellitus without complications; E78.00 Pure hypercholesterolemia, unspecified; Z79.899 Other long term (current) drug therapy
CPT/HCPCS: 47000; 70551; 76700; 76942; 80048; 80053; 80076; 80307; 81001; 82140; 82390; 82525; 82570; 82784; 82962; 83036; 83516; 83690; 85025; 85610; 85730; 86038; 86790; 86850; 86900; 86901; 88307; 99285; G0481; J1644; J3490